=== PATIENT | female | born 1990 | race Caucasian/White ===

== ENCOUNTER 2017-01-05 12:10 | Emergency (ER) | payer OTHER ==
[~2017-01-05] VITALS: Ht 160 cm; Wt 78.0 kg
[2017-01-05 14:47] VITALS: BP 124/87
== END 2017-01-05 14:40 | disposition home or self-care (01) ==
LOC: ED 12:10
DX: M25.572 Pain in left ankle and joints of left foot (principal); M25.571 Pain in right ankle and joints of right foot; R26.89 Other abnormalities of gait and mobility

== ENCOUNTER 2018-10-17 17:25 | Emergency (ER) | payer OTHER ==
[2018-10-17 20:50] VITALS: BP 105/74
== END 2018-10-17 20:50 | disposition home or self-care (01) ==
LOC: ED 17:25
DX: N76.0 Acute vaginitis (principal)

== ENCOUNTER 2019-03-19 19:29 | Emergency (ER) | payer OTHER ==
[~2019-03-19] VITALS: Ht 162.6 cm; Wt 78.5 kg
[2019-03-19 19:34] VITALS: Ht 162.6 cm; Wt 78.5 kg
[2019-03-19 20:07] VITALS: BP 107/71
== END 2019-03-19 20:07 | disposition home or self-care (01) ==
LOC: ED 19:29
DX: H60.93 Unspecified otitis externa, bilateral (principal)

== ENCOUNTER 2019-08-18 16:00 | Emergency (ER) | payer OTHER ==
[~2019-08-18] VITALS: Ht 162.6 cm; Wt 87.1 kg
[2019-08-18 16:05] VITALS: Ht 162.6 cm; Wt 87.1 kg
[2019-08-18 19:32] VITALS: BP 118/77
== END 2019-08-18 19:32 | disposition home or self-care (01) ==
LOC: ED 16:00
DX: N76.0 Acute vaginitis (principal)
CPT/HCPCS: 87491; 87591

== ENCOUNTER 2019-10-29 16:09 | Emergency (ER) | payer OTHER ==
[~2019-10-29] VITALS: Ht 162.6 cm; Wt 54.1 kg
[2019-10-29 16:32] VITALS: BP 119/70; Ht 162.6 cm; Wt 54.1 kg
== END 2019-10-29 18:47 | disposition home or self-care (01) ==
LOC: ED 16:09
DX: H66.92 Otitis media, unspecified, left ear (principal)